=== PATIENT | female | born 1995 | race Hispanic/Latino ===

== ENCOUNTER 2021-01-11 15:29 | Emergency (ER) | payer OTHER ==
[~2021-01-11] VITALS: Ht 152.4 cm; Wt 61.2 kg
[2021-01-11 16:18] LABS: BASOPHILS % (AUTO) 0.6 % (0.0-5.0); EOSINOPHILS % (AUTO) 0.7 % (0.0-8.0); HEMATOCRIT 39.1 % (36-48); LYMPHOCYTES % (AUTO) 21.9 % (21.0-51.0); MEAN CORPUSCULAR HEMOGLOBIN 28.3 pg (27.0-33.0); MEAN CORPUSCULAR HGB CONC 34.5 g/dL (32.0-36.0); NEUTROPHILS % (AUTO) 67.5 % (40.0-77.0); PLATELET COUNT (AUTO) 476 K/uL (130-400); RED BLOOD CELL COUNT(AUTO) 4.77 MIL/uL (4.00-5.50); RED CELL DISTRIBUTION WIDTH 14.2 % (11.0-15.5); WHITE BLOOD COUNT (AUTO) 14.3 K/uL (4.8-10.8)
[2021-01-11 16:37] LABS: CREATININE 0.9 mg/dL (0.5-1.5); POTASSIUM 3.7 mmol/L (3.5-5.1)
[2021-01-11 16:41] LABS: ALBUMIN 4.1 g/dL (3.5-5.0); BILIRUBIN,TOTAL 0.6 mg/dL (0.2-1.0); TOTAL PROTEIN, SERUM 8.5 g/dL (6.0-8.3)
[2021-01-11 17:51] LABS: APPEARANCE,URINE SL CLOUDY (CLEAR); BILIRUBIN,URINE SMALL (NEGATIVE); COLOR,URINE YELLOW (YELLOW); GLUCOSE, URINE (UA) NEGATIVE (NEGATIVE); KETONES,URINE >=80 mg/dL (NEGATIVE); LEUKOCYTE ESTERASE ,URINE TRACE (NEGATIVE); NITRATE,URINE NEGATIVE (NEGATIVE); OCCULT BLOOD,URINE MODERATE (NEGATIVE); PROTEIN,URINE TRACE mg/dL (NEGATIVE); UROBILINOGEN,URINE 0.2 mg/dL (0.2-1.0)
[2021-01-11 17:53] LABS: HCG,QUAL RESULT NEGATIVE (NEGATIVE)
[2021-01-11 18:16] LABS: BACTERIA,URINE Few /HPF (None Seen); RBC,URINE 0-1 /HPF (0-1)
[2021-01-11 18:17] LABS: SQUAMOUS EPITHELIAL CELL,UR Moderate /HPF (0-2)
[2021-01-11 19:30] VITALS: BP 110/76
[2021-01-11] MEDS ORDERED: LACTATED RINGERS 1000ML 1,000 ML IV ONE ×2 (20:15→21:59)
[2021-01-11] MEDS ORDERED: KETOROLAC 30MG VIAL (30MG/ML) IVP ONE (20:15)
[2021-01-11] MEDS ORDERED: KETOROLAC 30MG VIAL (30MG/ML) ONE (20:30)
[2021-01-11] MEDS ORDERED: LIDOCAINE HCL 2% JELLY 5 ML ONE (20:30)
[2021-01-11] MEDS ORDERED: LIDOCAINE HCL 2% JELLY 5 ML TP STA (20:41)
[2021-01-11] MEDS ORDERED: IBUP-2088 PO (21:37)
[2021-01-11] MEDS ORDERED: MUPI22O TP (21:37)
[2021-01-11 21:59] VITALS: BP 123/76
== END 2021-01-11 22:08 | disposition home or self-care (01) ==
LOC: EDH 15:29
DX: S90.822A Blister (nonthermal), left foot, initial encounter (principal); S90.821A Blister (nonthermal), right foot, initial encounter; E86.0 Dehydration; X58.XXXA Exposure to other specified factors, initial encounter; Y93.89 Activity, other specified; Y92.89 Other specified places as the place of occurrence of the external cause; Y99.8 Other external cause status
CPT/HCPCS: 36415; 80053; 81001; 81025; 84703; 85025; 87088; 96374; 99283; J1885; J7120; 96361